=== PATIENT | female | born 1975 | race Caucasian/White ===

== ENCOUNTER 2016-09-11 15:51 | Emergency (ER) | payer SELFPAY ==
[~2016-09-11] VITALS: Ht 170.2 cm; Wt 104.0 kg
[~2016-09-11 15:51] MED LIST: ACET-1757 PO; IBUP200C PO; LISI-170 PO; METH1PAT6; OXYC-302 PO; TRAM50TA2 PO; ZOLM5TAB10 PO
[2016-09-11] MEDS ORDERED: ALBUTEROL SULFATE 2.5 MG/3 ML NPPB ONE (16:30)
[2016-09-11] MEDS ORDERED: ALBUTEROL SULFATE 2.5 MG/3 ML ONE (16:40)
[2016-09-11] MEDS ORDERED: DEXTROMETHORPHAN 30 MG/5 ML ORAL SOL PO PRN (17:00)
[2016-09-11 18:23] VITALS: BP 162/115
== END 2016-09-11 18:26 | disposition home or self-care (01) ==
LOC: ED 16:40
DX: J02.9 Acute pharyngitis, unspecified (principal); B96.89 Other specified bacterial agents as the cause of diseases classified elsewhere; I10 Essential (primary) hypertension; R51 Headache; G89.29 Other chronic pain; J44.9 Chronic obstructive pulmonary disease, unspecified; Z86.73 Personal history of transient ischemic attack (TIA), and cerebral infarction without residual deficits; Z79.899 Other long term (current) drug therapy
CPT/HCPCS: 71020; 94640; 99284; J7613

== ENCOUNTER 2017-08-09 10:35 | Emergency (ER) | payer SELFPAY ==
[~2017-08-09] VITALS: Ht 170.2 cm; Wt 106.9 kg
[~2017-08-09 10:35] MED LIST changes: -IBUP200C PO; +IBUP200C5 PO
[2017-08-09] MEDS ORDERED: LABETALOL 5MG/ML, 20ML IVPush ONE (11:00)
[2017-08-09] MEDS ORDERED: ASPIRIN 81 MG TABLET CHEW PO ONE (11:00)
[2017-08-09] MEDS ORDERED: SODIUM CHLORIDE FLUSH 10ML SYR IVF ONE (11:00)
[2017-08-09] MEDS ORDERED: IBUP200T64 PO (11:17)
[2017-08-09 11:18] LABS: BASOPHILS # (AUTO) 0.03 x10^3/uL (0-0.1); BASOPHILS % (AUTO) 0 % (0-1); EOSINOPHILS # (AUTO) 0.16 x10^3/uL (0-0.4); EOSINOPHILS % (AUTO) 2 % (1-7); LYMPHOCYTES # (AUTO) 2.22 x10^3/uL (1-3.4); LYMPHOCYTES % (AUTO) 24 % (22-44); MD NO; MEAN CORPUSCULAR HEMOGLOBIN 29.7 pg (27.0-34.8); MEAN CORPUSCULAR VOLUME 87.5 fL (80-100); MEAN PLATELET VOLUME 7.2 fL (7.4-10.4); MONOCYTES # (AUTO) 0.54 x10^3/uL (0.2-0.8); MONOCYTES % (AUTO) 6 % (2-9); NEUTROPHILS # (AUTO) 6.22 x10^3/uL (1.8-6.8); NEUTROPHILS % (AUTO) 68 % (42-75); PLATELET COUNT 320 x10^3/uL (130-400); RED BLOOD COUNT 4.12 x10^6/uL (3.82-5.3); RED CELL DISTRIBUTION WIDTH 14.4 % (9.6-15.2)
[2017-08-09] MEDS ORDERED: ASPIRIN 81 MG TABLET CHEW ONE (11:21)
[2017-08-09] MEDS ORDERED: LABETALOL 5MG/ML, 20ML ONE (11:21)
[2017-08-09] MEDS ORDERED: METOCLOPRAMIDE 5 MG/ML, 2ML ONE (11:24)
[2017-08-09 11:27] LABS: INTERNATIONAL NORMALIZED RATIO 0.99 (0.93-1.1); PROTHROMBIN TIME 10.2 Seconds (9.6-11.5)
[2017-08-09 11:31] LABS: ALANINE AMINOTRANSFERASE 24 U/L (12-78); ALBUMIN 3.5 g/dL (3.4-5.0); ANION GAP 5 mmol/L (5-15); CALCIUM 8.1 mg/dL (8.5-10.1); CHLORIDE 106 mmol/L (98-107)
[2017-08-09 11:35] LABS: ALKALINE PHOSPHATASE 73 U/L (45-117); BILIRUBIN,TOTAL 0.3 mg/dL (0.2-1.0); TOTAL PROTEIN 7.4 g/dL (6.4-8.2); TROPONIN I < 0.015 ng/mL (0.000-0.045)
[2017-08-09] MEDS ORDERED: METOCLOPRAMIDE 5 MG/ML, 2ML IVPush ONE (12:00)
[2017-08-09 13:53] VITALS: BP 143/94
== END 2017-08-09 14:23 | disposition left against medical advice (07) ==
LOC: ED 13:16 → EDIP 13:17 → UNDOADMIN 13:17 → ED 13:34
DX: R07.2 Precordial pain (principal); R53.1 Weakness; R20.2 Paresthesia of skin; I10 Essential (primary) hypertension; J44.9 Chronic obstructive pulmonary disease, unspecified; Z90.49 Acquired absence of other specified parts of digestive tract
CPT/HCPCS: 36415; 70450; 71045; 80053; 84484; 85025; 85610; 85730; 93005; 93306; 96374; 96375; 99285; J2765

== ENCOUNTER 2018-01-13 18:43 | Emergency (ER) | payer SELFPAY ==
[~2018-01-13] VITALS: Ht 170.2 cm; Wt 90.0 kg
[~2018-01-13 18:43] MED LIST changes: +IBUP-1623 PO; -IBUP200C5 PO; +IBUP200T64 PO
[2018-01-13] MEDS ORDERED: OXYcodone/APAP 5/325MG TABLET PO ONE (20:30)
[2018-01-13] MEDS ORDERED: OXYcodone/APAP 5/325MG TABLET ONE (20:51)
[2018-01-13 21:14] VITALS: BP 182/110
== END 2018-01-13 21:18 | disposition home or self-care (01) ==
LOC: ED 21:12
DX: S93.492A Sprain of other ligament of left ankle, initial encounter (principal); I10 Essential (primary) hypertension; J44.9 Chronic obstructive pulmonary disease, unspecified; F17.200 Nicotine dependence, unspecified, uncomplicated; Z90.49 Acquired absence of other specified parts of digestive tract; W22.8XXA Striking against or struck by other objects, initial encounter; Y93.89 Activity, other specified; Y99.8 Other external cause status; Y92.009 Unspecified place in unspecified non-institutional (private) residence as the place of occurrence of the external cause
CPT/HCPCS: 29515; 99284

== ENCOUNTER 2018-05-10 10:39 | Emergency (ER) | payer SELFPAY ==
[~2018-05-10] VITALS: Ht 170.2 cm; Wt 91.0 kg
[2018-05-10] MEDS ORDERED: LISI-170 PO (10:57)
--- NOTE | 2018-05-10 10:59 | NUR ---
BEDSIDE REPORT TO ED RNS LEONARDA CORNELIUS.
[2018-05-10] MEDS ORDERED: PROMETHAZINE 25 MG/ML, 1ML IM ONE (11:30)
[2018-05-10] MEDS ORDERED: PROMETHAZINE 25 MG/ML, 1ML ONE (11:50)
--- NOTE | 2018-05-10 11:55 | NUR ---
LAB TO BEDSIDE. MEDICATION ADMIN PER JUN.
--- NOTE | 2018-05-10 12:18 | NUR ---
pt to ct at this time.
[2018-05-10 12:25] LABS: BASOPHILS # (AUTO) 0.03 x10^3/uL (0-0.1); BASOPHILS % (AUTO) 0 % (0-1); EOSINOPHILS # (AUTO) 0.07 x10^3/uL (0-0.4); EOSINOPHILS % (AUTO) 1 % (1-7); LYMPHOCYTES # (AUTO) 2.64 x10^3/uL (1-3.4); LYMPHOCYTES % (AUTO) 29 % (22-44); MD NO; MEAN CORPUSCULAR HEMOGLOBIN 29.6 pg (27.0-34.8); MEAN CORPUSCULAR HGB CONC 34.1 g/dL (32.4-35.8); MEAN CORPUSCULAR VOLUME 86.8 fL (80-100); MEAN PLATELET VOLUME 7.3 fL (7.4-10.4); MONOCYTES # (AUTO) 0.46 x10^3/uL (0.2-0.8); MONOCYTES % (AUTO) 5 % (2-9); NEUTROPHILS # (AUTO) 6.05 x10^3/uL (1.8-6.8); NEUTROPHILS % (AUTO) 65 % (42-75); PLATELET COUNT 345 x10^3/uL (130-400); RED BLOOD COUNT 4.23 x10^6/uL (3.82-5.3); RED CELL DISTRIBUTION WIDTH 16.8 % (9.6-15.2)
[2018-05-10 12:30] LABS: ALBUMIN 3.7 g/dL (3.4-5.0); ANION GAP 10 mmol/L (5-15); CALCIUM 8.6 mg/dL (8.5-10.1); CHLORIDE 112 mmol/L (98-107)
[2018-05-10 12:35] LABS: CREATININE 0.85 mg/dL (0.55-1.02); TROPONIN I < 0.015 ng/mL (0.000-0.045)
--- NOTE | 2018-05-10 12:54 | NUR ---
ALL RESUTLS BACK AT THIS TIME, CHART UP FOR RECHECK
[2018-05-10 13:20] VITALS: BP 164/102
--- NOTE | 2018-05-10 13:21 | NUR ---
pt restsing in bed. manual bp obtained. htn. tachy. o2 sat wnl. will continure to monitor.
[2018-05-10] MEDS ORDERED: ACETAMINOPHEN 500 MG TABLET PO ONE (13:30)
[2018-05-10] MEDS ORDERED: ACETAMINOPHEN 500 MG TABLET ONE (13:50)
== END 2018-05-10 14:01 | disposition home or self-care (01) ==
LOC: ED 12:35
DX: R51 Headache (principal); R00.2 Palpitations; I10 Essential (primary) hypertension; J44.9 Chronic obstructive pulmonary disease, unspecified; F17.200 Nicotine dependence, unspecified, uncomplicated
CPT/HCPCS: 36415; 70450; 71045; 80048; 82040; 84484; 85025; 93005; 96372; 99284; J2550

== ENCOUNTER 2018-11-08 18:26 | Emergency (ER) | payer MEDICAID ==
[~2018-11-08] VITALS: Ht 170.2 cm; Wt 110.0 kg
[2018-11-08 18:46] VITALS: BP 186/108
[2018-11-08] MEDS ORDERED: OXYcodone/APAP 5/325MG TABLET PO ONE (19:00)
[2018-11-08] MEDS ORDERED: ONDANSETRON ODT 4 MG PO ONE (19:00)
[2018-11-08] MEDS ORDERED: ONDANSETRON ODT 4 MG ONE (19:24)
[2018-11-08] MEDS ORDERED: OXYcodone/APAP 5/325MG TABLET ONE (19:24)
== END 2018-11-08 19:46 | disposition home or self-care (01) ==
LOC: ED 19:20
DX: S00.83XA Contusion of other part of head, initial encounter (principal); S09.90XA Unspecified injury of head, initial encounter; I10 Essential (primary) hypertension; J44.9 Chronic obstructive pulmonary disease, unspecified; W18.2XXA Fall in (into) shower or empty bathtub, initial encounter; Y93.89 Activity, other specified; Y92.009 Unspecified place in unspecified non-institutional (private) residence as the place of occurrence of the external cause; Y99.8 Other external cause status
CPT/HCPCS: 70450; 70486; 99284; Q0162